=== PATIENT | male | born 1950 | race Caucasian/White ===

== ENCOUNTER 2023-11-14 10:33 | Outpatient (CLI) | payer MEDICARE ==
[2023-11-14] MEDS ORDERED: Iopamidol 370 76% 100 ML VIAL ONE (10:55)
== END 2023-11-14 10:34 | disposition home or self-care (01) ==
LOC: BICCT 10:33
PROVIDERS: ATTEND Nurse Practitioner Family
DX: I71.43 Infrarenal abdominal aortic aneurysm, without rupture (principal); I70.0 Atherosclerosis of aorta
CPT/HCPCS: 74175; 82565; Q9967